=== PATIENT | male | born 1985 ===

== ENCOUNTER 2019-05-15 04:32 | Emergency (ER) | payer SELFPAY ==
[2019-05-15 05:16] VITALS: BP 141/93
[2019-05-15] MEDS ORDERED: FAMOTIDINE 20 MG TAB PO ONE (05:54)
[2019-05-15] MEDS ORDERED: DIPHENOXYLATE/ATROPINE TAB PO ONE (05:54)
[2019-05-15] MEDS ORDERED: DICYCLOMINE 20 MG TAB PO ONE (05:54)
--- NOTE | 2019-05-15 05:54 | XRay Report ---
CHEST PA AND LATERAL VIEWS INDICATION: cough. COMPARISON: None FINDINGS: Support devices: None Heart: Normal Lungs/Pleura: No acute pulmonary or pleural findings. IMPRESSION: 1. No significant abnormality. Signer Name: Berny Harding MD Signed: 05/15/2019 5:50 AM Workstation Name: [id number]
[2019-05-15 05:57] LABS: Basophils % (Auto) 0.7 % (0.0-1.8); Eosinophils # (Auto) 0.2 K/mm3 (0.0-0.4); Eosinophils % (Auto) 4.7 % (0.0-4.3); Hematocrit 47.7 % (35.5-45.6); Hemoglobin 15.1 gm/dl (11.8-15.2); Lymphocytes # (Auto) 1.4 K/mm3 (1.2-5.4); Lymphocytes % (Auto) 30.8 % (13.4-35.0); Mean Corpuscular HGB Conc 32 % (32-34); Mean Corpuscular Volume 72 fl (84-94); Monocytes # (Auto) 0.4 K/mm3 (0.0-0.8); Monocytes % (Auto) 9.8 % (0.0-7.3); Platelet Count 201 K/mm3 (140-440); Red Blood Count 6.63 M/mm3 (3.65-5.03); Red Cell Distribution Width 14.5 % (13.2-15.2)
[2019-05-15 06:13] LABS: BUN/Creatinine Ratio 8; Blood Urea Nitrogen 10 mg/dL (9-20); Calcium 9.2 mg/dL (8.4-10.2); Hemolysis Index 3
--- NOTE | 2019-05-15 06:23 | Emergency Department Report ---
ED N/V/D HPI - General Chief complaint: Nausea/Vomiting/Diarrhea Stated complaint: FLU SXT, ABD PAIN Source: patient Mode of arrival: Ambulatory Limitations: No Limitations - History of Present Illness Initial comments: Patient is a 33-year-old -[place] male with no past medical history who presents to the ED with complaint of acute onset persistent diffuse body aches a nd pains, persistent diarrhea with epigastric discomfort for the last 5 days after eating food at home. Patient states that he is on mother has had similar symptoms for the same duration. Patient denies dizziness, headache, chest pain, shortness of breath, dysuria, urinary frequency and urgency, hematochezia, hematemesis, nausea, vomiting, fever, chills, cough, testicular pain, dysuria or urinary frequency and urgency. MD complaint: diarrhea, abdominal pain (epigastric discomfort), other (body aches) -: Sudden, days(s) (5) Description of Diarrhea: water Associated Abdominal Pain: Yes (mild epigastric discomfort) Location: epigastric Radiation: none Severity: mild Pain Scale: 5 Quality: aching, dull Consistency: intermittent Improves with: none Worsens with: none Context: possible food poisoning, sick contacts Associated Symptoms: denies other symptoms, myalgias, loss of appetite, malaise. denies: chest pain, cough, diaphoresis, fever/chills, headaches, nausea/vomiting, rash, dysuria, shortness of breath, syncope, weakness - Related Data Previous Rx's Medication Instructions Recorded Last Taken Type Dicyclomine [Bentyl] 20 mg PO Q6H PRN #30 tablet 05/15/19 Unknown Rx Diphenoxylate/Atropine [Lomotil] 1 - 2 tab PO Q4H PRN #20 tablet 05/15/19 Unknown Rx Famotidine [Pepcid] 20 mg PO Q12H #60 tablet 05/15/19 Unknown Rx Allergies Allergy/AdvReac Type Severity Reaction Status Date / Time No Known Allergies Allergy Unverified 05/15/19 05:28 ED Review of Systems ROS: Stated complaint: FLU SXT, ABD PAIN Other details as noted in HPI Constitutional: denies: chills, fever Eyes: denies: eye pain, eye discharge, vision change ENT: congestion. denies: ear pain, throat pain Respiratory: cough. denies: shortness of breath, wheezing Cardiovascular: denies: chest pain, palpitations Endocrine: no symptoms reported Gastrointestinal: abdominal pain (mild epigastric discomfort), diarrhea. denies: nausea, vomiting Genitourinary: denies: urgency, dysuria Musculoskeletal: denies: back pain, joint swelling, arthralgia Skin: denies: rash, lesions Neurological: denies: headache, weakness, paresthesias Psychiatric: denies: anxiety, depression Hematological/Lymphatic: denies: easy bleeding, easy bruising ED Past Medical Hx - Past Medical History Previous Medical History?: No - Surgical History Past Surgical History?: No - Social History Smoking Status: Never Smoker Substance Use Type: None - Medications Home Medications: Home Medications Medication Instructions Recorded Confirmed Last Taken Type Dicyclomine [Bentyl] 20 mg PO Q6H PRN #30 tablet 05/15/19 Unknown Rx Diphenoxylate/Atropine [Lomotil] 1 - 2 tab PO Q4H PRN #20 tablet 05/15/19 Unknown Rx Famotidine [Pepcid] 20 mg PO Q12H #60 tablet 05/15/19 Unknown Rx ED Physical Exam - General Limitations: No Limitations General appearance: alert, in no apparent distress - Head Head exam: Present: atraumatic, normocephalic, normal inspection - Eye Eye exam: Present: normal appearance, PERRL, EOMI Pupils: Present: normal accommodation - ENT ENT exam: Present: normal exam, normal orophraynx, mucous membranes moist, TM's normal bilaterally, normal external ear exam - Neck Neck exam: Present: normal inspection, full ROM - Respiratory Respiratory exam: Present: normal lung sounds bilaterally. Absent: respiratory distress, wheezes, rales, rhonchi, chest wall tenderness, decreased breath sounds, prolonged expiratory - Cardiovascular Cardiovascular Exam: Present: regular rate, normal rhythm, normal heart sounds. Absent: systolic murmur, diastolic murmur, rubs, gallop - GI/Abdominal GI/Abdominal exam: Present: soft, normal bowel sounds. Absent: tenderness, guarding, rebound, hyperactive bowel sounds - Extremities Exam Extremities exam: Present: normal inspection, full ROM, normal capillary refill - Back Exam Back exam: Present: normal inspection, full ROM. Absent: tenderness, muscle spasm, paraspinal tenderness, vertebral tenderness - Neurological Exam Neurological exam: Present: alert, oriented X3, CN II-XII intact, normal gait, reflexes normal - Psychiatric Psychiatric exam: Present: normal affect, normal mood - Skin Skin exam: Present: warm, dry, intact, normal color. Absent: rash ED Course Vital Signs 05/15/19 05:09 Temperature 98.4 F Pulse Rate 87 Respiratory 20 Rate Blood Pressure 141/93 O2 Sat by Pulse 96 Oximetry ED Medical Decision Making - Lab Data Result diagrams: 05/15/19 05:34 05/15/19 05:34 - Medical Decision Making This is a 33-year-old male presented to the ED with persistent diarrhea, mild epigastric discomfort and diffuse body aches and pains for the last 5 days. In the ED, patient is alert and oriented 3 and is not in distress. Lab test results were reviewed and are nonactionable. Chest x-ray shows no acute cardiopulmonary abnormalities on pneumonitis. Patient was treated for diarrhea, also treated with antacids and pain medications. On reevaluation, patient has not had any diarrhea episodes in the ED, and his epigastric discomfort has significantly improved. Patient symptoms are likely due to a viral syndrome from contaminated food. Patient was discharged home on medications and advised to follow-up with his primary care physician in 5-7 days for reevaluation or return to the ED immediately if symptoms get worse. - Differential Diagnosis viral gastroenteritis; GERD; Gastritis; URI Critical care attestation.: If time is entered above; I have spent that time in minutes in the direct care of this critically ill patient, excluding procedure time. ED Disposition Clinical Impression: Viral gastroenteritis, Acute epigastric pain Diarrhea Qualifiers: Diarrhea type: unspecified type Qualified Code(s): R19.7 - Diarrhea, unspecified GERD (gastroesophageal reflux disease) Qualifiers: Esophagitis presence: without esophagitis Qualified Code(s): K21.9 - Gastro- esophageal reflux disease without esophagitis Disposition: -01 TO HOME OR SELFCARE Is pt being admited?: No Does the pt Need Aspirin: No Condition: Stable Instructions: Gastroesophageal Reflux Disease (ED), Acute Diarrhea (ED), Gastroenteritis (ED) Additional Instructions: Take medication with food, drink plenty of fluids and follow-up with your primary care physician in 5-7 days for reevaluation. Return to the ED immediately if symptoms get worse. Prescriptions: Dicyclomine [Bentyl] 20 mg PO Q6H PRN #30 tablet PRN Reason: Pain , Severe (7-10) Diphenoxylate/Atropine [Lomotil] 1 - 2 tab PO Q4H PRN #20 tablet PRN Reason: Diarrhea Famotidine [Pepcid] 20 mg PO Q12H #60 tablet Referrals: [facility] [Outside] - 7-10 days Forms: Work/School Release Form(ED) Time of Disposition: 06:23 Print Language: IVORIAN
== END 2019-05-15 06:42 | disposition home or self-care (01) ==
LOC: ED 04:32
DX: K21.9 Gastro-esophageal reflux disease without esophagitis (principal); Z79.899 Other long term (current) drug therapy
CPT/HCPCS: 36415; 71046; 80048; 85025